=== PATIENT | male | born 1980 | race Two or more races ===

== ENCOUNTER 2020-08-31 21:13 | Emergency (ER) | payer SELFPAY ==
[~2020-08-31] VITALS: Ht 180.3 cm; Wt 80.0 kg
--- NOTE | 2020-08-31 21:15 | NUR ---
PT BIB [facility] TO ED TONIGHT [facility] USING [facility] A FEW HOURS AGO. PT STATES "I FEEL LIKE SOMEONE IS TRYING TO HURT ME." DENIES HI/SI. PT APPEARS ANXIOUS, PT COOPERATIVE. NAD, PLACED ON SPO2/BP/ECG MONITORING AT THIS TIME. WCTM. WAITING FOR PROVIDER EVAL.
[2020-08-31] MEDS ORDERED: EMTR1TAB8 PO (21:19)
[2020-08-31] MEDS ORDERED: BUPR-173 PO (21:19)
--- NOTE | 2020-08-31 21:22 | NUR ---
3 VERSED ENROUTE BY [facility]GEL AT BS FOR EVAL AND POC
[2020-08-31] MEDS ORDERED: LORazepam 2 MG/ML, 1ML ONE (21:43)
--- NOTE | 2020-08-31 21:55 | NUR ---
PT MEDICATED PER OCT, RESTING ON GURNEY, STILL ANXIOUS AT THIS TIME. NAD, NO OTHER CHANGES IN CONDITION, WCTM.
[2020-08-31] MEDS ORDERED: SODIUM CHLORIDE 0.9% 1,000ML IVBOLUS ONE (22:00)
[2020-08-31] MEDS ORDERED: LORazepam 2 MG/ML, 1ML IVPush ONE (22:00)
--- NOTE | 2020-08-31 22:34 | NUR ---
PT LAYING ON BACK ON GURNEY, APPEARS SLIGHTLY MORE RELAXED THAN HE WAS ON ARRIVAL, PT NAD, PROVIDED WATER AND WARM BLANKET FOR COMFORT, DENIES ADDITIONAL NEEDS AT THIS TIME. SHY.
[2020-08-31 23:13] VITALS: BP 138/81
--- NOTE | 2020-08-31 23:44 | NUR ---
Patient given discharge instructions and they have confirmed that they understand the instructions. Patient ambulatory with steady gait. NAD, DENIES ADDITIONAL NEEDS, ALL QUESTIONS ANSWERED APPROPRIATELY, PROVIDED TAXI VOUCHER. NO PERSONAL BELONGINGS LEFT IN ROOM AFTER DC.
== END 2020-08-31 23:46 | disposition home or self-care (01) ==
LOC: ED 21:55
DX: F15.10 Other stimulant abuse, uncomplicated (principal); R94.31 Abnormal electrocardiogram [ECG] [EKG]; R00.0 Tachycardia, unspecified; F41.9 Anxiety disorder, unspecified
CPT/HCPCS: 93005; 96361; 96374; 99283; J2060; J7030